=== PATIENT | male | born 1990 | race Caucasian/White ===

== ENCOUNTER → 2020-09-18 | Outpatient (CLI) | payer OTHER ==
[~2020-09-18] MED LIST: LEVAQUIN 500 M500 MG PO; VENTOLIN HFA 1818 GM INH
== END | disposition home or self-care (01) ==
LOC: NUC 07:41
PROVIDERS: ATTEND Otolaryngology Plastic Surgery within the Head & Neck
DX: C43.22 Malignant melanoma of left ear and external auricular canal (principal); Z79.899 Other long term (current) drug therapy